=== PATIENT | female | born 1980 | race Caucasian/White ===

== ENCOUNTER 2016-10-04 12:08 | Day surgery (SDC) | payer BC, SELFPAY ==
--- NOTE | ~2016-10-04 | OP ---
Record Of Operation [facility] [address] [place]. [address] NAME: SHEILA ARRIAGA : 78 STATUS : REG [facility] [place] PAT#: [id number] AGE: 35 ADM/REG DATE : 10/04/16 MR#: [id number] REPORT SERV DATE: 10/04/16 DICTATED BY: JOSE SHEEHAN III DATE: 10/04/16 REPORT STATUS : Draft TRANSCRIBED BY: MODL DATE: 10/04/16 DATE OF PROCEDURE: 10/04/2016 PREOPERATIVE DIAGNOSIS: Right renal calculus. POSTOPERATIVE DIAGNOSIS: Right renal calculus. PROCEDURE: Extracorporeal shock wave lithotripsy. SURGEON: Jose Sheehan M.D. ANESTHESIA: MAC. SPECIMEN: None. DRAINS: None. INDICATIONS: Ms. Arriaga is a 35-year-old white female, with a known right renal calculus. She has had some right-sided pain, although it is hard to attribute all to this stone. She does wish to proceed with shock wave lithotripsy. The patient does understand that this may not alleviate her pain. DESCRIPTION OF PROCEDURE: After consent was obtained, the patient was identified. She was taken to the lithotripsy suite and placed in the supine position. Her stone was visualized using fluoroscopy and the unit was made ready. MAC anesthesia was administered and lithotripsy commenced. She had some significant ectopy, so the treatment was then gated. She ultimately received 1200 shocks. The procedure was terminated that point in time secondary to inability to visualize any fragments or the stone itself, indicating good fragmentation. The patient was then taken to phase 2 recovery in stable condition. PH/MODL Jose Sheehan III, M.D. / [id number] CC: Osman Gupta III
[~2016-10-04 12:08] MED LIST: CELEXA10 PO; X5 PO
[2016-10-04 13:05] LABS: ASCORBIC ACID (UR NOT ORDER) NEG (NEG); BILIRUBIN, URINE NEGATIVE (NEG); KETONE, URINE NEGATIVE (NEG); LEUKOCYTE ESTERASE(NOT OR NEG (NEG); WBC (NOT ORDERED) (RFLEX) 1 (0-5)
== END 2016-10-04 17:34 | disposition home or self-care (01) ==
LOC: SDC 12:08
PROVIDERS: Urology
PROC: 0TF3XZZ Fragmentation in Right Kidney Pelvis, External Approach (ICD-10-PCS; principal; 2016-10-04 14:00)
DX: N20.0 Calculus of kidney (principal); F41.9 Anxiety disorder, unspecified; F17.210 Nicotine dependence, cigarettes, uncomplicated; Z79.899 Other long term (current) drug therapy; Z90.711 Acquired absence of uterus with remaining cervical stump
CPT/HCPCS: 50590; 74000; 81001; 84703; J2250; J2370; J2550; J3010